=== PATIENT | female | born 1995 | race Caucasian/White ===

== ENCOUNTER 2017-05-31 22:10 | Emergency (ER) | payer BC ==
[2017-05-31] MEDS ORDERED: Acetaminophen/oxyCODONE 325-5 MG Tab PO ONE (23:10)
[2017-05-31] MEDS ORDERED: Ketorolac 10 MG Tab PO ONE (23:11)
--- NOTE | 2017-05-31 23:11 | EDM.PDOC ---
ED HPI GENERAL MEDICAL PROBLEM - General Chief Complaint: Lower Extremity Injury/Pain Stated Complaint: right foot pain Time Seen by Provider: 05/31/17 22:41 Source of Information: Reports: Patient History Limitations: Reports: No Limitations - History of Present Illness INITIAL COMMENTS - FREE TEXT/NARRATIVE: right foot injury after someone stepped onto her foot while playing volleyball. Painful to fully weight bear. No other reported injuries. No numbness. Treatments [employer] ATTENDANT: Reports: Cold Therapy Right Feet Pain Score (Numeric/FACES): 8 - Related Data Allergies Allergy/AdvReac Type Severity Reaction Status Date / Time No Known Allergies Allergy Verified 05/31/17 22:11 Home Meds: Home Meds Non-Formulary Medication [NF Drug] 1 tab PO DAILY 05/31/17 [History] Past Medical History - Past Health History Medical/Surgical History: Denies Medical/Surgical History Social & Family History - Tobacco Use Smoking Status *Q: Never Smoker - Recreational Drug Use Recreational Drug Use: No Review of Systems - Review of Systems Review Of Systems: ROS reveals no pertinent complaints other than HPI. ED EXAM, GENERAL - Physical Exam Exam: See Below Exam Limited By: No Limitations General Appearance: Alert, WD/WN, No Apparent Distress Eye Exam: Bilateral Eye: EOMI, PERRL Head: Atraumatic, Normocephalic Respiratory/Chest: No Respiratory Distress Peripheral Pulses: 2+: Dorsalis Pedis (R) Extremities: Other (tender along lateral right foot near base of 5th metatarsal. Early bruising noted here. Minimal swelling. No deformity. Patient able to wiggle toes. Able to move ankle but pain limited full ROM. Foot otherwise nontender. ) Neurological: Alert, Oriented, Normal Cognition Psychiatric: Normal Affect, Normal Mood Skin Exam: Warm, Dry, Intact Course - Vital Signs Last Recorded V/S: Last Vital Signs Temp 37.0 C 05/31/17 22:36 Pulse 103 H 05/31/17 22:36 Resp 14 05/31/17 22:36 BP 114/70 05/31/17 22:36 Pulse Ox 100 05/31/17 22:36 - Orders/Labs/Meds Orders: Active Orders 24 hr Category Date Time Status Foot Comp Min 3V Rt [CR] Stat Exams 05/31/17 22:19 Taken Meds: Medications Discontinued Medications Generic Name Dose Route Start Last Admin Trade Name Freq PRN Reason Stop Dose Admin Ketorolac Tromethamine 10 mg 05/31/17 23:11 05/31/17 23:15 Toradol PO 05/31/17 23:12 10 mg ONETIME ONE Administration Oxycodone/Acetaminophen 1 tab 05/31/17 23:10 05/31/17 23:15 Percocet 325-5 Mg PO 05/31/17 23:11 1 tab ONETIME ONE Administration - Radiology Interpretation Free Text/Narrative:: No obvious fracture noted on xray - Re-Assessments/Exams Free Text/Narrative Re-Assessment/Exam: 06/01/17 00:29 Suspect soft tissue injury secondary to being stepped on by another [employer] player. Patient declines crutches. To avoid weight bearing for the next 24 hours then advance activity as tolerated. To follow up as needed if this does not act like a normal contusion/soft tissue injury and have foot rechecked. Departure - Departure Time of Disposition: 23:25 Disposition: Home, Self-Care 01 Condition: Good Clinical Impression: Right foot injury Qualifiers: Encounter type: initial encounter Qualified Code(s): S99.921A - Unspecified injury of right foot, initial encounter - Discharge Information Instructions: Crush Injury of the Foot, [id number] Referrals: Sully Ty, PRODUCTION CONTROL CLERK [Primary Care Provider] - Forms: ED Department Discharge Additional Instructions: Rest/ice/elevation as discussed. Get crutches to avoid weight bearing tomorrow if walking causes you a lot of discomfort. Follow up for recheck if pain does not significantly improve within 2-3 days. Ibuprofen or Aleve or Tylenol for pain as needed. - My Orders Last 24 Hours: My Active Orders 05/31/17 22:19 Foot Comp Min 3V Rt [CR] Stat - Assessment/Plan Last 24 Hours: My Active Orders 05/31/17 22:19 Foot Comp Min 3V Rt [CR] Stat
== END 2017-05-31 23:35 | disposition home or self-care (01) ==
LOC: LL.ED 22:10
DX: S90.31XA Contusion of right foot, initial encounter (principal); W50.0XXA Accidental hit or strike by another person, initial encounter; Y93.68 Activity, volleyball (beach) (court)
CPT/HCPCS: 73630-RT; 99283; A9270-GY